=== PATIENT | male | born 1970 | race Caucasian/White ===

== ENCOUNTER 2017-10-19 07:03 | Emergency (ER) | payer BC ==
[~2017-10-19] VITALS: Ht 175.3 cm; Wt 85.0 kg
[2017-10-19 07:08] VITALS: BP 141/91; PULSE 70; RESP 16; TEMP 98.5; O2SAT 98
--- NOTE | 2017-10-19 07:09 | PD ---
HPI Chief Complaint: flank pain Time Seen by Provider: 07:11 Travel History International Travel<30 days: No Contact w/Intl Traveler<30days: No Traveled to known affect area: No History of Present Illness HPI c/o acute onset right flank pain, 9/10, radiating to front, assoc with nausea but no v/d....onset since 0 last night....last ate chips/dip around 2100... however since this am, pt has no flank pain and only rlq area pain, 7/10, worse with walking..... pt denies any alleviating/aggravating factors. pt denies assoc factors such as fever/cough/v/d/cp/back pain all: pcn pmhx:kidney stones pshx: hand surgery PFSH Past Medical History Diminished Hearing: No Kidney Stones: Yes Social History Alcohol Use: No Tobacco Use: No Substance Use: No Allergies-Medications (Allergen,Severity, Reaction): Coded Allergies: penicillin G (Unverified Allergy, Unknown, 10/19/17) Reported Meds & Prescriptions Reported Meds & Active Scripts Active No Active Prescriptions or Reported Medications Review of Systems Except as stated in HPI: all other systems reviewed are Neg General / Constitutional: No: Fever Eyes: No: Visual changes HENT: No: Headaches Cardiovascular: No: Chest Pain or Discomfort Respiratory: No: Shortness of Breath Gastrointestinal: No: Abdominal Pain Genitourinary: Positive: Flank Pain Musculoskeletal: No: Pain Skin: No Rash Neurologic: No: Weakness Psychiatric: No: Depression Endocrine: No: Polydipsia Hematologic/Lymphatic: No: Easy Bruising Physical Exam Narrative GENERAL: SKIN: Warm and dry. HEAD: Atraumatic. Normocephalic. EYES: Pupils equal and round. No scleral icterus. No injection or drainage. ENT: No nasal bleeding or discharge. Mucous membranes pink and moist. NECK: Trachea midline. No JVD. CARDIOVASCULAR: Regular rate and rhythm. RESPIRATORY: No accessory muscle use. Clear to auscultation. Breath sounds equal bilaterally. GASTROINTESTINAL: Abdomen soft, neg rovsing's, positive psoas, positive mcburney 's, nondistended. MUSCULOSKELETAL: Extremities without clubbing, cyanosis, or edema. No obvious deformities. NEUROLOGICAL: Awake and alert. No obvious cranial nerve deficits. Motor grossly within normal limits. Five out of 5 muscle strength in the arms and legs. Normal speech. PSYCHIATRIC: Appropriate mood and affect; insight and judgment normal. Data Data Last Documented VS Vital Signs Date Time Temp Pulse Resp B/P (MAP) Pulse Ox O2 Delivery O2 Flow Rate FiO2 10/19/17 08:08 75 18 144/90 (108) 98 Room Air 10/19/17 07:08 98.5 Orders Orders Complete Blood Count With Diff (10/19/17 07:11) Comprehensive Metabolic Panel (10/19/17 07:11) Lipase (10/19/17 07:11) Ua Includes Microscopic (10/19/17 07:11) Iv Access Insert/Monitor (10/19/17 07:11) Ecg Monitoring (10/19/17 07:11) Oximetry (10/19/17 07:11) NPO (10/19/17 07:11) Hydromorphone Pf Inj (Dilaudid Pf Inj) (10/19/17 07:15) Ondansetron Inj (Zofran Inj) (10/19/17 07:15) Sodium Chlor 0.9% 1000 Ml Inj (Ns 1000 M (10/19/17 07:11) Ct Abd/Pel W Iv Contrast(Rout) (10/19/17 07:21) Iohexol 350 Inj (Omnipaque 350 Inj) (10/19/17 07:54) Labs Laboratory Tests Test 10/19/17 07:24 White Blood Count 7.4 TH/MM3 Red Blood Count 5.09 MIL/MM3 Hemoglobin 15.3 GM/DL Hematocrit 46.7 % Mean Corpuscular Volume 91.8 FL Mean Corpuscular Hemoglobin 30.1 PG Mean Corpuscular Hemoglobin Concent 32.8 % Red Cell Distribution Width 12.1 % Platelet Count 259 TH/MM3 Mean Platelet Volume 8.1 FL Neutrophils (%) (Auto) 68.0 % Lymphocytes (%) (Auto) 23.4 % Monocytes (%) (Auto) 6.7 % Eosinophils (%) (Auto) 1.2 % Basophils (%) (Auto) 0.7 % Neutrophils # (Auto) 5.0 TH/MM3 Lymphocytes # (Auto) 1.7 TH/MM3 Monocytes # (Auto) 0.5 TH/MM3 Eosinophils # (Auto) 0.1 TH/MM3 Basophils # (Auto) 0.1 TH/MM3 CBC Comment DIFF FINAL Differential Comment Blood Urea Nitrogen 20 MG/DL Creatinine 1.10 MG/DL Random Glucose 95 MG/DL Total Protein 8.3 GM/DL Albumin 4.1 GM/DL Calcium Level 9.4 MG/DL Alkaline Phosphatase 94 U/L Aspartate Amino Transf (AST/SGOT) 20 U/L Alanine Aminotransferase (ALT/SGPT) 34 U/L Total Bilirubin 0.4 MG/DL Sodium Level 138 MEQ/L Potassium Level 4.0 MEQ/L Chloride Level 104 MEQ/L Carbon Dioxide Level 26.1 MEQ/L Anion Gap 8 MEQ/L Estimat Glomerular Filtration Rate 72 ML/MIN Lipase 230 U/L [facility] Medical Decision Making Medical Screen Exam Complete: Yes Emergency Medical Condition: Yes Medical Record Reviewed: Yes Differential Diagnosis uti v pyelo v kidney stones v appy Narrative Course no leukocytosis, no anemia, no left shift. also on cmp normal kidney/liver/ pancreas functions. normal electrolytes. ct showed a mid ureteral 4x3mm stone on right ureter with mild hydronephrosis, but no appy. Diagnosis Primary Impression: Ureterolithiasis Patient Instructions: General Instructions, Kidney Stones (ED) Scripts Tamsulosin (Flomax) 0.4 Mg Cap 0.4 MG PO DAILY for Manage Prostate Problems, #5 CAP 0 Refills Prov: Moises Vega MD 10/19/17 Oxycodone-Acetaminophen (Percocet) 5-325 mg Tab 1 TAB PO Q6H Y for PAIN, #14 TAB 0 Refills Prov: Moises Vega MD 10/19/17 Ketorolac (Ketorolac) 10 Mg Tab 10 MG PO Q6HR Y for PAIN, #20 TAB 0 Refills Prov: Moises Vega MD 10/19/17 Ondansetron Odt (Zofran Odt) 4 Mg Tab 4 MG SL Q6HR Y for Nausea/Vomiting, #20 TAB 0 Refills Prov: Moises Vega MD 10/19/17 Disposition: 01 DISCHARGE HOME Condition: Stable Moises Vega MD Oct 19, 2017 07:09
[2017-10-19] MEDS ORDERED: SODIUM CHLOR 0.9% 1000 ML INJ 1,000 ML IV SCH (07:11)
[2017-10-19] MEDS ORDERED: HYDROmorphone HCL PF 2 MG/ML VIAL IVS ONE (07:15)
[2017-10-19] MEDS ORDERED: ONDANSETRON HCL 4 MG/2 ML VIAL IVP ONE (07:15)
[2017-10-19 07:29] VITALS: O2SAT 96
[2017-10-19 07:32] LABS: BASOPHIL # 0.1 TH/MM3 (0-0.2); BASOPHIL % 0.7 % (0.0-2.0); EOSINOPHIL # 0.1 TH/MM3 (0-0.4); EOSINOPHIL % 1.2 % (0.0-4.0); HEMATOCRIT 46.7 % (39.0-51.0); HEMOGLOBIN 15.3 GM/DL (13.0-17.0); LYMPH % 23.4 % (9.0-44.0); LYMPHOCYTE # 1.7 TH/MM3 (1.0-4.8); MEAN CELL VOLUME 91.8 FL (80.0-100.0); MEAN CORPUSCULAR HEMOGLOBIN 30.1 PG (27.0-34.0); MEAN CORPUSCULAR HGB CONC 32.8 % (32.0-36.0); MEAN PLATELET VOLUME 8.1 FL (7.0-11.0); MONO % 6.7 % (0.0-8.0); MONOCYTE # 0.5 TH/MM3 (0-0.9); PLATELET COUNT 259 TH/MM3 (150-450); RED BLOOD COUNT 5.09 MIL/MM3 (4.50-5.90); RED CELL DISTRIBUTION WIDTH 12.1 % (11.6-17.2); WHITE BLOOD COUNT 7.4 TH/MM3 (4.0-11.0)
[2017-10-19 07:40] LABS: CHLORIDE 104 MEQ/L (98-107); SODIUM (NA) 138 MEQ/L (136-145)
[2017-10-19 07:44] LABS: ALBUMIN 4.1 GM/DL (3.4-5.0); BICARBONATE 26.1 MEQ/L (21.0-32.0); BLOOD UREA NITROGEN 20 MG/DL (7-18); CALCIUM 9.4 MG/DL (8.5-10.1); GLUCOSE,RANDOM 95 MG/DL (74-106); LIPASE 230 U/L (73-393)
[2017-10-19 07:47] LABS: ALT (GPT) 34 U/L (12-78); AST (GOT) 20 U/L (15-37); GLOMERULAR FILTRATION RATE 72 ML/MIN (>89)
[2017-10-19 07:49] LABS: TOTAL BILIRUBIN ADULT 0.4 MG/DL (0.2-1.0); TOTAL PROTEIN 8.3 GM/DL (6.4-8.2)
[2017-10-19 07:50] LABS: ALKALINE PHOSPHATASE 94 U/L (45-117)
[2017-10-19] MEDS ORDERED: IOHEXOL 350 MG/ML 10 ML VIAL (for RAD DIAG) IVCONTRAST ONE (07:54)
--- NOTE | 2017-10-19 08:06 | RADRPT ---
EXAM DATE/TIME: 10/19/2017 07:42 [facility] COMPARISON: No previous studies available for comparison. INDICATIONS : Right sided abdominal pain since last night. Evaluate for appendicitis. IV CONTRAST: 95 cc Omnipaque 350 (iohexol) IV ORAL CONTRAST: No oral contrast ingested. RADIATION DOSE: 10.18 CTDIvol (mGy) MEDICAL HISTORY : Renal calculi. Orthopedic surgery. SURGICAL HISTORY : None. ENCOUNTER: Initial ACUITY: 2 days PAIN SCALE: 2/10 LOCATION: Right lower quadrant TECHNIQUE: Volumetric scanning of the abdomen and pelvis was performed. Using automated exposure control and ad justment of the mA and/or kV according to patient size, radiation dose was kept as low as reasonably achievable to obtain optimal diagnostic quality images. DICOM format image data is available electro nically for review and comparison. FINDINGS: LOWER LUNGS: The visualized lower lungs are clear. LIVER: Homogeneous density without lesion. There is no dilation of the biliary tree. No calcified gallston es. SPLEEN: Normal size without lesion. PANCREAS: Within normal limits. KIDNEYS: There are nonobstructing stone seen in the renal collecting systems bilaterally. The largest stone on the right side measure 0.8 cm and is seen at the mid lateral collecting system. The largest stone on the left side are seen inferiorly, best seen on the coronal images measuring up to 5 mm. There is mi ld dilatation of the right collecting system and right proximal ureter. There is a 4 mm stone at the right proximal ureter at the level of the inferior aspect of L4. The more distal aspect of the right ureter is clear. No hydronephrosis is seen on the left side. ADRENAL GLANDS: Within normal limits. VASCULAR: There is no aortic aneurysm. BOWEL/MESENTERY: There are a few scattered colonic diverticula. The appendix is normal. ABDOMINAL WALL: Within normal limits. RETROPERITONEUM: There is no lymphadenopathy. BLADDER: No wall thickening or mass. REPRODUCTIVE: Within normal limits. INGUINAL: There is no lymphadenopathy or hernia. MUSCULOSKELETAL: Within normal limits for patient age. CONCLUSION: Bilateral renal stones with a 4 mm stone at the right proximal ureter causing mild di latation of the right collecting system and right proximal ureter. Zachary Santiago MD on October 19, 2017 at 7:58 Board Certified Radiologist. This report was verified electronically.
[2017-10-19 08:08] VITALS: BP 144/90; PULSE 75; RESP 18; O2SAT 98
[2017-10-19] MEDS ORDERED: KETO10 PO (08:13)
[2017-10-19] MEDS ORDERED: TAMS5CAP PO (08:13)
[2017-10-19] MEDS ORDERED: PERC5TAB12 PO (08:13)
[2017-10-19] MEDS ORDERED: ZOFR4TAB3 SL (08:13)
== END 2017-10-19 08:22 | disposition home or self-care (01) ==
LOC: PHED 07:03
DX: N20.1 Calculus of ureter (principal); Z87.442 Personal history of urinary calculi
CPT/HCPCS: 74177; 80053; 83690; 85025; 96360; 99285; J7030; Q9967